=== PATIENT | female | born 1935 | race Hispanic/Latino ===

== ENCOUNTER → 2018-08-17 | Outpatient (CLI) | payer OTHER, MEDICARE ==
[~2018-08-17] MED LIST: AEC81 PO; ATOR40TA71 PO; BENZ-51 PO; BUDE10.22 IH; CARV12.511 PO; CHOL400T4 PO; CLOP75TA14 PO; DOCU-282 PO; FERS325 PO; FURO20TA4 PO; RANI150C4 PO; RANO500T3 PO; VALS160T29 PO; VITA1CAP85 PO
== END | disposition home or self-care (01) ==
LOC: RAH 13:32
PROVIDERS: ATTEND Internal Medicine Cardiovascular Disease
DX: I11.0 Hypertensive heart disease with heart failure (principal); I50.32 Chronic diastolic (congestive) heart failure; R06.00 Dyspnea, unspecified
CPT/HCPCS: 71046

== ENCOUNTER → 2020-06-11 | Outpatient (CLI) | payer OTHER, MEDICARE | END | disposition home or self-care (01) | LOC: SHCH 08:31 | PROVIDERS: ATTEND Internal Medicine Cardiovascular Disease | DX: R09.89 Other specified symptoms and signs involving the circulatory and respiratory systems (principal); R06.00 Dyspnea, unspecified | CPT/HCPCS: 93306; 93356; 93880 ==

== ENCOUNTER 2021-03-12 13:21 | Emergency (ER) | payer OTHER, MEDICARE ==
[~2021-03-12] VITALS: Ht 152.4 cm; Wt 55.3 kg
[~2021-03-12 13:21] MED LIST changes: -AEC81 PO; -BENZ-51 PO; +BENZ-70 PO
[2021-03-12 13:23] VITALS: BP 95/36
== END 2021-03-12 14:30 | disposition left against medical advice (07) ==
LOC: EDH 13:21
DX: M79.602 Pain in left arm (principal); Z53.21 Procedure and treatment not carried out due to patient leaving prior to being seen by health care provider
CPT/HCPCS: 93005